=== PATIENT | male | born 1945 | race Caucasian/White ===

== ENCOUNTER 2019-01-11 01:46 | Inpatient (IN) | payer MEDICARE, OTHER ==
[2018-12-31 08:56] LABS: ABSOLUTE EOSINOPHILS 0.1 thou/uL (0.0-0.7); ABSOLUTE LYMPHOCYTES 1.8 thou/uL (0.8-5.3); ABSOLUTE MONOCYTES 0.6 thou/uL (0.0-1.2); ABSOLUTE NEUTROPHILS 3.5 thou/uL (1.6-8.1); BASOPHILS 0.8 %; EOSINOPHILS 0.9 %; HEMATOCRIT 45.4 % (42.0-52.0); HEMOGLOBIN 15.2 gm/dL (14.0-18.0); LYMPHOCYTES 29.3 %; MCH 28.4 pg (26.0-34.0); MCHC 33.4 g/dL (28.0-37.0); MCV 85.1 fL (80.0-100.0); MONOCYTES 10.2 %; MPV 8.7 fl. (7.2-11.1); NUCLEATED RBCS 0 /100WBC; PLATELET COUNT* 170 thou/uL (150-400); POLYS 58.8 %; RBC 5.33 mil/uL (4.50-6.00); RDW-CV 13.8 % (10.5-14.5)
[2018-12-31 09:01] LABS: CALCIUM 8.9 mg/dL (8.5-10.1); CREATININE 1.1 mg/dL (0.6-1.3); POTASSIUM 4.3 mmol/L (3.5-5.1)
[2018-12-31 09:04] LABS: APTT 25.5 Seconds (25.0-31.3); PROTIME 10.7 Seconds (9.20-11.50)
[2018-12-31 09:05] LABS: ALBUMIN 3.6 g/dL (3.4-5.0); TOTAL BILIRUBIN 0.6 mg/dL (<0.1-1.0)
[2018-12-31 10:40] LABS: ESR (SEDRATE) 5 mm/hr (0-20)
--- NOTE | 2018-12-31 14:12 | EKG ---
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
[~2019-01-11] VITALS: Ht 175.3 cm; Wt 87.1 kg
--- NOTE | ~2019-01-11 | OP ---
[address] [address] OPERATIVE REPORT Name: TATIANA KATHLEEN Room: [address] IN .R.#: [id number] Admission: 01/11/19 Attend Phys: Uche Fuentes Discharge: Date of : 49 Report #: [id number] THIS REPORT FOR: //name// CC: MELVINA Ramírez DICTATED BY: Eusebio Gonsales DO DATE OF SERVICE: 01/11/2019 PREOPERATIVE DIAGNOSIS: Right hip advanced degenerative joint disease. POSTOPERATIVE DIAGNOSIS: Right hip advanced degenerative joint disease. PROCEDURES: Right total hip arthroplasty with direct anterior approach, utilizing the Biomet G7 total hip arthroplasty system with the following components: 1. A 64-mm G7 finned 4-hole acetabular shell. 2. A 40-mm high-wall acetabular liner, E1. 3. A size 18 high-offset Taperloc Micro femoral stem. 4. A 40-mm diameter ceramic head with -3 mm neck adapter. 5. Two 6.5-mm diameter bone screws for the acetabular shell, 125 mm length and the other 30 mm length. SURGEON: Bonifacio Romero DO. STERILIZATION TECHNICIAN: Eusebio Gonsales DO. ANESTHESIA: General. ESTIMATED BLOOD LOSS: 275 mL. ANTIBIOTICS: Two grams Ancef IV preoperatively. DRAINS: None. SPECIMENS: None. DISPOSITION: Stable to PACU and will be admitted to the hospital for standard postoperative care. INDICATION FOR PROCEDURE: The patient is a pleasant 73-year-old male who was seen in the Orthopedic Clinic with chronic complaints of right hip pain and was found to have advanced degenerative joint disease noted on radiographs and his pain was refractory to conservative measures consisting of oral anti-inflammatories, activity modifications [place] [address] OPERATIVE REPORT Name: TATIANA KATHLEEN Room: [address] IN [facility].#: [id number] Admission: 01/11/19 Attend Phys: Uche Fuentes Discharge: Date of : 49 Report #: [id number] for much greater than 6 months' duration and was greatly impacting his quality of life. Therefore, we recommended proceeding with a right total hip arthroplasty. Risks, benefits, complications, indications and alternative treatments were discussed and the patient wished to proceed with surgery today. DESCRIPTION OF PROCEDURE: The patient was seen in the preoperative holding area. Correct operative site, right hip, was initialed. The patient was taken back to the operating suite, placed in supine position on the [place] operating traction table. The patient was given benefit of general anesthetic and well-padded traction boots were placed on bilateral feet in the normal fashion and he was positioned on a [place] traction table in the normal fashion. Right hip was prepped and draped in the typical fashion. Surgery began at the time identifying correct patient, correct procedure, correct operative site, preoperative antibiotics and correct performing surgeon. Next, a standard direct anterior approach was made to the right hip. Skin incision was made starting roughly 2 fingerbreadths distal and 2 fingerbreadths lateral to the ASIS. Skin was incised in a longitudinal fashion, angling slightly lateral and distally for roughly 6 cm. Subcutaneous tissues were sharply dissected down to the level of the tensor fascia. Tensor fascia was incised with a new 10 blade scalpel and Metzenbaum scissors in line with the incision. Medial fascial plane was developed to identify the interval between the sartorius and tensor fascia rylee, which was bluntly dissected. Superior neck was palpable at this time. Meyerding retractors were placed in this interval. We dissected out our ascending branch of the lateral circumflex femoral artery. We coagulated this with the Aquamantys cautery. We then incised through deep fascia and placed our standard retractors around the extracapsular around the superior and inferior neck and on the anterior rim of the anterior column. We then pretreated our anterior capsule with Aquamantys in the normal fashion. Performed our anterior capsulectomy in the normal fashion. Then made our neck cut utilizing the oscillating saw, just off of our intertrochanteric Ridge, roughly 1 cm proximal to our lesser trochanter. A separate cut was made more proximally in the neck to remove a wafer of bone and then the femoral head was removed. It was measured on the back table to roughly 59 mm. We performed significant amount of debridement around the periphery of the acetabular rim and around the cotyloid fossa, removing remnants of labrum and acetabular ligament. Next, one-step reaming was performed with a 63-mm reamer under C-arm fluoroscopy. We had a great bleeding cancellous bone. We then impacted our final acetabular shell in the appropriate amount of anteversion and abduction angle. It was a 64 mm finned shell. We then placed two cancellous screws through two of the acetabular shell holes in the normal fashion. We placed our high-wall acetabular liner and impacted this into place with the high wall facing in the anterior superior direction. We then confirmed appropriate final positioning and seating of our acetabular component on C-arm fluoroscopy. [address] [address] OPERATIVE REPORT Name: TATIANA KATHLEEN Room: [address]#: [id number] Admission: 01/11/19 Attend Phys: Uche Fuentes Discharge: Date of : 49 Report #: [id number] We then turned our attention to the proximal femur. We placed the leg in an externally rotated position, performed our typical medial capsular release and our lateral capsular release back to the greater trochanter. We then placed our standard retractors. Extended the hip and adducted the hip to allow appropriate exposure. We placed the box osteotome in the proximal femur, followed by the canal finder and then performed sequential broaching in the normal manner, maintaining an appropriate anteversion of our stem. We broached up to a size 18 stem, which seemed to be appropriately filling this canal and metaphysis and had great fit and it seemed to be a very solid fixation. We trialled off the stem with a high-offset -3 neck and a 40 head. A trial reduction was performed. Hip was taken through a range of motion and felt to be stable in all planes. We confirmed appropriate stem size and positioning, appropriate offset and appropriate leg lengths measured on an AP pelvis intraoperatively. We, therefore, dislocated the hip, removed the trial femoral components, irrigated the stem, placed our normal vancomycin powder in the proximal femur and impacted our final femoral stem in the normal fashion. We then placed our final ceramic head with a -3 neck adaptor and impacted this into place. We performed a final hip reduction. Again took the hip through range of motion and felt to be stable in all planes. Obtained final AP and lateral C-arm fluoroscopic images, seemed to have equal leg lengths on the AP pelvis obtained intraoperatively. Wound was then thoroughly irrigated. Remaining cocktail that was not used prior to our skin incision was injected at the end of the case subcutaneously and in the surrounding musculature. Fascia rylee was closed with a #1 running Stratafix suture. Subcutaneous tissue was closed in a simple inverted fashion with 2-0 Monocryl suture. A running 3-0 subcuticular Stratafix was performed on the deep skin layer and Dermabond was applied to the superficial skin. Sterile dressings were applied consisting of Mepilex. The patient was weaned from general anesthesia, transferred in stable condition to the PACU. All sponge and needle counts were correct x 2. By: [id number] Romero DO /raj
[~2019-01-11 01:46] MED LIST: IBUPROFEN 200200 M1 PO; MELATONIN5 M1 PO
[2019-01-11 15:00] VITALS: BP 125/68
[2019-01-11 16:00] VITALS: BP 154/66
[2019-01-11] MEDS ORDERED: OXYCODONE HCL 55 MG PO (17:19)
[2019-01-11] MEDS ORDERED: ELIQUIS2.5 MG PO (17:19)
[2019-01-11 20:30] VITALS: BP 124/66
[2019-01-12] VITALS: BP 102/45
[2019-01-12 04:00] VITALS: BP 99/52
[2019-01-12 04:51] LABS: HEMATOCRIT 37.5 % (42.0-52.0); HEMOGLOBIN 12.6 gm/dL (14.0-18.0)
[2019-01-12 07:45] VITALS: BP 111/54
[2019-01-12 09:21] VITALS: BP 111/54
[2019-01-12 16:35] VITALS: BP 122/68
[2019-01-12 21:00] VITALS: BP 131/75
[2019-01-13] VITALS: BP 118/55
[2019-01-13 04:00] VITALS: BP 119/62
[2019-01-13 04:35] LABS: HEMATOCRIT 38.2 % (42.0-52.0); HEMOGLOBIN 12.6 gm/dL (14.0-18.0)
[2019-01-13 08:00] VITALS: BP 120/65
[2019-01-13] MEDS ORDERED: ASPIRIN325 PO (10:34)
[2019-01-13 10:38] VITALS: BP 111/54
[2019-01-13 11:59] VITALS: BP 111/54
== END 2019-01-13 11:20 | disposition home or self-care (01) | DRG 470 ==
LOC: M.SUR 01:46 → M.TBA 12:44 → M.ORTHSURG 12:44 → M.SUR 13:17 → M.ORTHSURG 14:29 → M.SUR 14:39 → M.ORTHSURG 01-13 11:20
PROVIDERS: Orthopaedic Surgery; ADMIT Internal Medicine
PROC: 0SR903Z Replacement of Right Hip Joint with Ceramic Synthetic Substitute, Open Approach (ICD-10-PCS; principal; 2019-01-11)
DX: M16.11 Unilateral primary osteoarthritis, right hip (principal); D62 Acute posthemorrhagic anemia; Z90.49 Acquired absence of other specified parts of digestive tract

== ENCOUNTER 2019-02-02 08:49 | Inpatient (IN) | payer MEDICARE, OTHER ==
[~2019-02-02] VITALS: Ht 170.2 cm; Wt 84.8 kg
[~2019-02-02 08:49] MED LIST changes: +ASPIRIN325 PO; +ELIQUIS2.5 MG PO; +OXYCODONE HCL 55 MG PO
[2019-02-02 08:56] VITALS: BP 128/55
[2019-02-02 09:40] LABS: ABSOLUTE NEUTROPHILS 4.2 thou/uL (1.6-8.1); MCHC 32.9 g/dL (28.0-37.0); MPV 8.4 fl. (7.2-11.1)
[2019-02-02 09:43] LABS: ABSOLUTE EOSINOPHILS 0.1 thou/uL (0.0-0.7); ABSOLUTE LYMPHOCYTES 2.1 thou/uL (0.8-5.3); ABSOLUTE MONOCYTES 0.5 thou/uL (0.0-1.2); BASOPHILS 0.6 %; EOSINOPHILS 1.6 %; HEMATOCRIT 42.4 % (42.0-52.0); LYMPHOCYTES 29.8 %; MCH 27.2 pg (26.0-34.0); MCV 82.6 fL (80.0-100.0); MONOCYTES 7.3 %; NUCLEATED RBCS 0 /100WBC; PLATELET COUNT* 318 thou/uL (150-400); POLYS 60.7 %; RBC 5.14 mil/uL (4.50-6.00); RDW-CV 13.5 % (10.5-14.5)
[2019-02-02 09:53] LABS: ALBUMIN 3.5 g/dL (3.4-5.0); ALKALINE PHOSPHATASE 127 U/L (46-116); ANION GAP 14 mmol/L (7-16); BUN 20 mg/dL (7-18); CALCIUM 9.2 mg/dL (8.5-10.1); CHLORIDE 104 mmol/L (98-107); CO2 20 mmol/L (21-32); CREATININE 1.3 mg/dL (0.6-1.3); GLUCOSE 114 mg/dL (70-99); POTASSIUM 3.7 mmol/L (3.5-5.1); SGOT 17 U/L (15-37); SGPT 19 U/L (30-65); SODIUM 138 mmol/L (136-145); TOTAL BILIRUBIN 0.6 mg/dL (<0.1-1.0); TOTAL PROTEIN 7.6 g/dL (6.4-8.2); TROPONIN-I LEVEL <0.06 ng/mL (<0.06)
[2019-02-02 10:13] LABS: APTT 25.9 Seconds (25.0-31.3); PROTIME 10.6 Seconds (9.20-11.50)
[2019-02-02 11:15] LABS: URINE BILIRUBIN NEGATIVE (Negative); URINE BLOOD TRACE (Negative); URINE CLARITY CLEAR; URINE COLOR YELLOW; URINE GLUCOSE-RANDOM NEGATIVE (Negative); URINE KETONES NEGATIVE (Negative); URINE LEUKOCYTES-REFLEX NEGATIVE (Negative); URINE NITRITE-REFLEX NEGATIVE (Negative); URINE PROTEIN NEGATIVE (Negative); URINE SPECIFIC GRAVITY 1.015 (1.005-1.030); URINE UROBILINOGEN 0.2 E.U./dl (0.2-1.0)
[2019-02-02 14:47] VITALS: BP 130/80
[2019-02-02 15:00] VITALS: BP 124/70
--- NOTE | 2019-02-02 16:20 | NUR ---
PT ADMITTED TO ROOM 226 AROUND 1500 WITH DX ACUTE DIZZINESS. PT REPORTS DIZZINESS REMAINS INTERMITTENTLY. FALL PRECAUTIONS IN PLACE. NEUROLOGY CONSULTED THIS SHIFT. NO OTHER CONCERNS AT THIS TIME. REFER TO ASSESSMENT. CLWR. WCTM.
--- NOTE | 2019-02-02 17:12 | EKG ---
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1945 Requested By: Selina Rodriguez Order Number: [id number] MD: Simon Mead Measurements Intervals [place] Rate: 60 P: 54 FL: 133 QRS: 28 QRSD: 113 T: 28 QT: 424 QTc: 424 Interpretive Statements Sinus rhythm Atrial premature complexes Incomplete right bundle branch block Nonspecific ST segment depression Compared to ECG 12/31/2018 09:25:45 Atrial premature complex(es) now present Incomplete right bundle-branch block now present Electronically Signed On 02-02-2019 17:11:58 CDT by Simon Mead [email or web address] <ELECTRONICALLY SIGNED> By: Simon Mead MD, FAC 02/02/19 1711 0946 0946 Simon Mead MD, [facility] /EPI
[2019-02-02 20:19] VITALS: BP 138/68
[2019-02-03] VITALS: BP 123/69
[2019-02-03 04:00] VITALS: BP 135/66
[2019-02-03 08:00] VITALS: BP 130/64
--- NOTE | 2019-02-03 08:00 | NUR ---
ASSUMED PT. CARE AND RECEIVED REPORT AT 0730. PT A/OX4, VSS, MONITOR ON TRACING SB. PT. DENIES CURRENT PAIN/SOB. ON RA @ 98%. PT. REPORTS FEELING BETTER, BUT WITH SOME SLIGHT LIGHTHEADEDNESS REMAINS IN PLACE. FULL ASSESSMENT COMPLETED, REFER TO CHARTING. CALL LIGHT IN REACH, WILL CONTINUE WITH PLAN OF CARE.
--- NOTE | 2019-02-03 11:53 | NUR ---
MET WITH PT TO DISCUSS HOME SITUATION/DC PLANNING. PT LIVES WITH . SHE IS CARING FOR HER MOTHER ON HOSPICE WELL PT HE IS ABOUT 3 WKS POST OP. PT USES WALKER AND HAS BEEN GETTING AROUND WELL AT HOME. DID NOT HAVE HH OR GO TO OUTPT. HE PLANS TO RETURN HOME AT DC. WILL FOLLOW
[2019-02-03 12:00] VITALS: BP 129/69
--- NOTE | 2019-02-03 13:40 | 2DMMODE ---
[place] [address] 2 D/M-MODE ECHOCARDIOGRAM Name: TATIANA KATHLEEN Room: [address] IN [facility]#: [id number] Admission: 02/02/19 Attend Phys: Uriel Delcid Discharge: Date of : 49 Date of Service: 02/03/19 1340 Report #: [id number] THIS REPORT FOR: //name// APPROVED REPORT Study performed: 02/03/2019 10:18:18 EXAM: Comprehensive 2D, Doppler, and color-flow Echocardiogram Patient Location: In-Patient Room #: [facility] Status: routine BSA: 1.97 HR: 74 bpm BP: 135/66 mmHg Rhythm: NSR Other Information Study Quality: Good Indications CVA/TIA Echo Enhancing Agent Indication: Rule out Shunt Agent(s) / Amount(s) Used: Agitated Saline 10 cc 2D Dimensions IVSd: 7.74 (7-11mm) LVOT Diam: 20.82 (18-24mm) LVDd: 53.39 mm PWd: 10.05 (7-11mm) Ascending Ao: 32.06 (22-36mm) LVDs: 36.11 (25-40mm) Aortic Root: 34.20 mm Volumes Left Atrial Volume (Systole) LA ESV Index: 18.20 mL/m2 Aortic Valve AoV Peak Bharat.: 1.46 m/s AO Peak Gr.: 8.53 mmHg LVOT Max P.66 mmHg AO Mean Gr.: 4.74 mmHg LVOT Mean P.84 mmHg LVOT Max V: 1.38 m/s AO V2 VTI: 29.17 cm LVOT Mean V: 0.74 m/s PRANAV (VTI): 2.86 cm2 LVOT V1 VTI: 24.49 [place] [address] 2 D/M-MODE ECHOCARDIOGRAM Name: TATIANA KATHLEEN Room: [address] IN .R.#: [id number] Admission: 02/02/19 Attend Phys: Uriel Delcid Discharge: Date of : 49 Date of Service: 02/03/19 1340 Report #: [id number] Mitral Valve E/A Ratio: 0.87 MV Decel. Time: 256.92 ms MV E Max Bharat.: 0.64 m/s MV PHT: 74.51 ms MVA (PHT): 2.95 cm2 TDI E/Lateral E': 6.40 E/Medial E': 5.82 Medial E' Bharat.: 0.11 m/s Lateral E' Bharat.: 0.10 m/s Pulmonary Valve PV Peak Bharat.: 1.09 m/s PV Peak Gr.: 4.73 mmHg Tricuspid Valve RAP Estimate: 5.00 mmHg TR Peak Gr.: 20.01 mmHg RVSP: 25.00 mmHg PA Pressure: 25.00 mmHg Left Ventricle The left ventricle is normal size. There is normal LV segmental wall motion. There is normal left ventricular wall thickness. Left ventricular systolic function is normal. The left ventricular ejection fraction is within the normal range. LVEF is 55-60%. Grade I - abnormal relaxation pattern. Right Ventricle The right ventricle is normal size. The right ventricular systolic function is normal. Atria The left atrium size is normal. Interatrial septum is intact without evidence of ASD or PFO. The right atrium size is normal. Aortic Valve Mild aortic valve sclerosis. No aortic regurgitation is present. There is no aortic valvular stenosis. Mitral Valve The mitral valve is normal in structure. Trace mitral regurgitation. No evidence of mitral valve stenosis. Tricuspid Valve The tricuspid valve is normal in structure. Trace tricuspid regurgitation. [place] [address] 2 D/M-MODE ECHOCARDIOGRAM Name: TATIANA KATHLEEN Room: [address] IN .R.#: [id number] Admission: 02/02/19 Attend Phys: Uriel Delcid Discharge: Date of : 49 Date of Service: 02/03/19 1340 Report #: [id number] Pulmonic Valve The pulmonary valve is normal in structure. There is no pulmonic valvular regurgitation. Great Vessels The aortic root is normal in size. IVC is normal in size and collapses >50% with inspiration. Pericardium There is no pericardial effusion. <Conclusion> The left ventricle is normal size. There is normal left ventricular wall thickness. Left ventricular systolic function is normal. The left ventricular ejection fraction is within the normal range. Grade I - abnormal relaxation pattern. The right ventricle is normal size. The left atrium size is normal. Mild aortic valve sclerosis. No aortic regurgitation is present. There is no aortic valvular stenosis. The mitral valve is normal in structure. Trace mitral regurgitation. The tricuspid valve is normal in structure. IVC is normal in size and collapses >50% with inspiration. There is no pericardial effusion. There is normal LV segmental wall motion. LVEF is 55-60%. <ELECTRONICALLY SIGNED> By: Vern Barksdale MD, FACC 02/03/19 1340 1340 1340 Vern Barksdale MD, FACC /INF
[2019-02-03] MEDS ORDERED: LIPITOR 20 MG T20 M1 PO (16:07)
[2019-02-03 16:10] VITALS: BP 129/69
--- NOTE | 2019-02-03 16:38 | NUR ---
CALLED NEW PRESCRIPTION FOR LIPITOR 20MG INTO PATIENT'S PHARMACY.
--- NOTE | 2019-02-03 16:51 | NUR ---
PATIENT AND QUESTIONING ORDER TO START LIPITOR - NO CHOLESTROL CHECKED DURING HOSPITAL STAY. PER CONVERSATION WITH DR. HAQ, MEDICATION WAS STARTED DUE TO PATIENTS AGE AND SYMPTOMS UPON ADMISSIONS - INFORMATION RELIED TO PATIENT AND .
--- NOTE | 2019-02-03 16:55 | NUR ---
PATIENT DISCHARGED IN STABLE CONDITION. DISCHARGE INSTRUCTIONS AND NEW MEDICATION INFORMATION, LIPITOR, REVIEWED AND SIGNED BY PATIENT WITH AT BEDSIDE. IV AND CLAIM REVIEW MEDICAL DIRECTOR REMOVED WITHOUT COMPLICATIONS FROM PATIENT. ALL BELONGINGS COLLECTED AND SENT WTIH PATIENT UPON DISCHARGE. PATIENT TRANSPORTED TO PRIVATE VEHICLE VIA WHEELCHAIR AND ACCOMPANIED BY .
[2019-02-03 17:04] VITALS: BP 129/69
--- NOTE | 2019-02-04 08:15 | NUR ---
P.T. ORDERS RECEIVED 02/02/19 AT 1535. PT DISCHARGED 02/03/19 PRIOR TO COMPLETION OF P.T. EVAL.
--- NOTE | 2019-02-04 09:23 | CON ---
[address] [address] CONSULTATION Name: TATIANA KATHLEEN Room: [address] IN M.R.#: [id number] Admission: 02/02/19 Attend Phys: Uriel Egan, Discharge: 02/03/19 Date of : 49 Report #: [id number] THIS REPORT FOR: //name// CC: MELVINA Egan HISTORY OF PRESENT ILLNESS: The patient is a 73-year-old male who began to experience dizziness that began the morning of admission. He got out of bed at 5:00 a.m. to use the bathroom and felt lightheaded as though he would pass out. He went to bed and when he woke up at 7:00 a.m., he felt as though he were spinning. I asked him if he had a headache, he denied a headache, but said he had a pounding type of ringing in his head. The patient does admit to a prior history of ringing of the ears. Since admission, the patient has now been up and walking in the pepper and feels good. He had a hip replacement approximately 3 weeks ago. He is on aspirin to prevent blood clots and had been doing quite well until this happened. PAST MEDICAL HISTORY: Unremarkable. PAST SURGICAL HISTORY: Lipoma removed from the right hip, appendectomy, tonsillectomy, bilateral inguinal hernia repair, prostate laser surgery, right hip replacement in 01/2019. MEDICATIONS: Melatonin 5 mg at bedtime, ibuprofen 200 mg p.r.n., aspirin 325 mg b.i.d. ALLERGIES: None. PHYSICAL EXAMINATION: VITAL SIGNS: Temperature is 36.7, pulse rate 63, respiratory rate 18, blood pressure 129/69, bedside pulse oximetry 100% on room air. NEUROLOGIC: Cranial nerves 2-12 are grossly intact. Motor exam demonstrates symmetrical strength in all 4 extremities with tone and bulk normal. Plantar responses are flexor bilaterally. Coordination reveals intact [id number]. LABORATORY DATA: Hematology: White blood cell count 7, hemoglobin 14, hematocrit 42.4, MCV 82.6, platelet count 318,000. INR 1. Urinalysis, pH 8.5, trace blood. Chemistry: Sodium 138, potassium 3.7, chloride 104, carbon dioxide 20, BUN 20, creatinine 1.3, GFR 54, glucose 114, calcium 9.2. Liver functions normal with the exception of alkaline phosphatase, which is 127, total protein 7.6, albumin 3.5. IMAGING STUDIES: CT scan of the head demonstrates no evidence of acute intracranial hemorrhage or other acute intracranial abnormality. Venous Doppler study demonstrates no evidence of thrombus in the right [place] [address] CONSULTATION Name: TATIANA KATHLEEN Room: [address] IN M.R.#: [id number] Admission: 02/02/19 Attend Phys: Uriel Egan, Discharge: 02/03/19 Date of : 49 Report #: [id number] the chest demonstrates no evidence of embolus. A 5 mm nodular density was seen in the right middle lobe. A repeat CT scan was recommended. IMPRESSION: This patient had an episode of vertigo. This is most likely secondary to peripheral vestibular dysfunction, although a central etiology cannot completely be ruled out. However, usually when someone has a stroke that causes dizziness there are other symptoms that go along with it and the patient has no other symptoms. These other symptoms would include double vision, difficulty with speech or weakness on one side of the body. I explained to the patient that if the dizziness returns, I would recommend an outpatient evaluation by [facility], which is in [place], [place]. I have no further suggestions at this point, and I thank you for your kind referral of the patient. <ELECTRONICALLY SIGNED> By: Bel Evangelista DO 02/04/19 0923 1317 [id number] Evangelista DO /nt
== END 2019-02-03 16:55 | disposition home or self-care (01) | DRG 149 ==
LOC: M.ERS 08:49 → M.TBA-ER 13:17 → M.2W 13:17
PROVIDERS: Personal Emergency Response Attendant; ADMIT Family Medicine
DX: H81.90 Unspecified disorder of vestibular function, unspecified ear (principal); I67.82 Cerebral ischemia; R91.1 Solitary pulmonary nodule; R00.1 Bradycardia, unspecified; Z96.641 Presence of right artificial hip joint; Z90.49 Acquired absence of other specified parts of digestive tract; Z79.82 Long term (current) use of aspirin; Z79.899 Other long term (current) drug therapy

== ENCOUNTER → 2019-02-18 | Outpatient (CLI) | payer MEDICARE, OTHER ==
[~2019-02-18] MED LIST changes: +LIPITOR 20 MG T20 M1 PO
== END ==
LOC: M.ULTRA 02-12 10:30
DX: D44.0 Neoplasm of uncertain behavior of thyroid gland (principal); E04.1 Nontoxic single thyroid nodule